=== PATIENT | female | born 1990 | race Caucasian/White ===

== ENCOUNTER 2019-10-18 09:11 | Emergency (ER) | payer BC, SELFPAY ==
[2019-10-18 09:14] VITALS: BP 123/67; PULSE 95; RESP 18; TEMP 36.6; O2SAT 99
--- NOTE | 2019-10-18 11:51 | ED.SKABFB ---
HPI - Skin/Abscess/Foreign Bdy General Chief complaint: Skin/Abscess/Foreign Body <Kuldeep Faye PA-C - Last Filed: 10/18/19 13:54> Stated complaint: bartholin cyst <Kuldeep Faye PA-C - Last Filed: 10/18/19 13:54> Time Seen by Provider: 10/18/19 10:15 <GORDON Navas Last Filed: 10/18/19 13:54> Source: patient <GORDON Navas Last Filed: 10/18/19 13:54> Mode of arrival: ambulatory <GORDON Navas Last Filed: 10/18/19 13:54> Limitations: no limitations <Kuldeep Faye PA-C - Last Filed: 10/18/19 13:54> History of Present Illness HPI narrative: Patient with history of recurrent Bartholin's cyst presents with a Bartholin cyst to the right side has been present for 3 days. Patient states that she has had approximately 15 Bartholin cyst over the past few years and is managed by Dr. Rico Vaughn [employer]. She reports that she had a marsupialization in 2019 but still had Bartholin's cyst reappear so she has been using NuvaRing successfully avoided having Bartholin cysts since. She reports that she took out her NuvaRing a few days early and thinks that this may be the cause of her Bartholin cyst. Patient states that she was told to see endocrinology for further evaluation since the marsupialization did not resolve Bartholin's cyst issues completely. Patient reports pain to the area but denies fever, chills, nausea, vomiting, diarrhea or any other symptoms. Patient states that she has had positive results with clindamycin in the past. Patient denies any other symptoms or concerns. <Kuldeep Faye PA-C - Last Filed: 10/18/19 13:54> Related Data Home medications: Home Medications Medication Instructions Recorded Confirmed buspirone 10 mg PO DAILY 10/18/19 <GORDON Navas Last Filed: 10/18/19 13:54> Allergies/Adverse reactions: Allergies Allergy/AdvReac Type Severity Reaction Status Date / Time bee venom protein (honey bee) Allergy Anaphylactic Verified 10/18/19 09:18 [bees] Shock cefaclor [From Ceclor] Allergy Unknown Verified 10/18/19 09:18 Sulfa (Sulfonamide Allergy Unknown Verified 10/18/19 09:18 Antibiotics) wasp Allergy Anaphylactic Uncoded 10/18/19 09:18 Shock <Kuldeep Faye PA-C - Last Filed: 10/18/19 13:54> Review of Systems Review of Systems: Narrative: CONSTITUTIONAL: Denies fever, chills, or sweats. EYES: Denies visual changes, redness, or discharge. ENT: Denies rhinorrhea, congestion, sore throat, or otalgia. CARDIOVASCULAR: Denies chest pain, palpitations, or edema. RESPIRATORY: Denies cough or dyspnea. GASTROINTESTINAL: Denies abdominal pain, nausea, vomiting, or diarrhea. GENITOURINARY: Reports vaginal pain and cyst denies dysuria or hematuria. SKIN: Denies rash or itching. MUSCULOSKELETAL: Denies back pain, joint pain, or myalgia. NEUROLOGIC: Denies headache, numbness, dizziness, or weakness. PSYCHIATRIC: Denies anxiety or depression. <Kuldeep Faye PA-C - Last Filed: 10/18/19 13:54> [facility] Past Medical History Medical History: Medical History (Updated 10/18/19 @ 11:58 by Kuldeep Faye PA-C) Bartholin cyst <Kuldeep Faye PA-C - Last Filed: 10/18/19 13:54> Social History Social History: Social History Gender identity (if verbalized by the patient): Female <Kuldeep Faye PA-C - Last Filed: 10/18/19 13:54> Exam Narrative: Exam Narrative: GENERAL: Well-appearing, well-nourished, nontoxic in appearance. HEAD: Normocephalic, atraumatic. EYES: PERRLA and EOMI. ENT: Nares clear, no rhinorrhea or epistaxis. Mucous membranes moist. Oropharynx without tonsillar hypertrophy exudate or other lesions. Bilateral TMs pearly jade nonbulging NECK: Supple. No adenopathy or masses. No carotid bruits or JVD CHEST: Clear to auscultation. No respiratory distress. No wheezes rales or rhonchi HEART: Regular rate and rhythm. ABDOMEN: Soft, nontender, nondistended, normal active franc
[2019-10-18 13:30] VITALS: BP 119/80; PULSE 90; RESP 12; O2SAT 100
== END 2019-10-18 14:10 | disposition home or self-care (01) ==
PROVIDERS: Emergency Provider Emergency Medicine; PCP Emergency Medicine
DX: N75.0 Cyst of Bartholin's gland (principal)
CPT/HCPCS: 56420; 87070; 87077; 87205; 99283; A9270

== ENCOUNTER 2019-11-25 06:52 | Outpatient (NON) | payer BC, SELFPAY ==
[2019-11-26 14:02] LABS: SARS-CoV-2 RNA PCR Negative
== END 2019-11-25 06:53 ==
PROVIDERS: PCP Emergency Medicine; Visit Provider Emergency Medicine
DX: Z20.828 Contact with and (suspected) exposure to other viral communicable diseases (principal); J02.9 Acute pharyngitis, unspecified
CPT/HCPCS: 87635; C9803; U0003

== ENCOUNTER 2021-10-06 13:26 | Outpatient (CLI) | payer BC, SELFPAY ==
--- NOTE | 2021-10-06 01:00 | ECHO_ITS ---
Patient Info Name: Jackie Engel Age: 31 years : 1990 Gender: Female Ht: 64 in Wt: 190 lbs BSA: 2.01 m2 HR: 69 bpm BP: 113 / 75 mmHg Heart Rhythm: Sinus Rhythm Technical Quality: Fair Exam Date: 10/06/2021 1:36 PM Exam Location: [facility] Patient Status: Outpatient Admit Date: 10/06/2021 Staff Ordering Physician: SophieRamon MD De Icer Element Winder: Belinda Villagran RDCS Attending Provider: Navjot*, Ramon Mak MD Referring Physician: Doris SRIVASTAVA; Exam Type: CA echo doppler color flow Study Info Indications R00.0 - Tachycardia, unspecified Complete two-dimensional, color flow and Doppler transthoracic echocardiogram is performed. Summary 1. Complete two-dimensional, color flow and Doppler transthoracic echocardiogram is performed. 2. Left ventricular chamber dimension is normal. 3. Left ventricular systolic function is normal, estimated at 60-65%. 4. The left ventricular diastolic function is normal. 5. E/e' 7 is not elevated. 6. There is trace mitral valve regurgitation. 7. There is trace tricuspid valve regurgitation. 8. No pulmonary hypertension, estimated pulmonary arterial systolic pressure is 26 mmHg. Left Ventricle E/e' 7 is not elevated. Left ventricular chamber dimension is normal. Left ventricular systolic function is normal, estimated at 60-65%. The left ventricular diastolic function is normal. Right Ventricle Right ventricular systolic function is normal and with normal TAPSE 1.9 cm. Right ventricular chamber dimension is normal. Left Atria Left atrial chamber dimension is normal. Right Atria Right atrial chamber dimension is normal. Aortic Valve The aortic valve is trileaflet. There is no aortic valve stenosis. There is no aortic valve regurgitation. Pulmonic Valve There is no pulmonic regurgitation. Mitral Valve There is no mitral valve stenosis. There is trace mitral valve regurgitation. Tricuspid Valve There is trace tricuspid valve regurgitation. No pulmonary hypertension, estimated pulmonary arterial systolic pressure is 26 mmHg. Pericardium/Pleural There is no pericardial effusion. Inferior Vena Cava Normal inferior vena cava with >50% collapse upon inspiration consistent with normal right atrial pressure, 5 mmHg. Aorta The aortic root size at the sinus of Valsalva is normal. Left Ventricular Outflow Tract Name Value Normal LVOT 2D LVOT Diameter 2.0 cm LVOT Doppler LVOT Peak Velocity 96 cm/s LVOT Peak Gradient 4 mmHg LVOT Mean Gradient 2 mmHg LVOT VTI 20 cm LVOT VTI/AV VTI Ratio 0.7 LVOT Stroke Volume 66 ml Pulmonic Valve Name Value Normal RVOT Doppler RVOT Peak Gradient 1 mmHg
== END 2021-10-06 13:27 | disposition home or self-care (01) ==
LOC: CHSIMG 13:28
PROVIDERS: Visit Provider Internal Medicine Cardiovascular Disease
DX: R00.0 Tachycardia, unspecified (principal)
CPT/HCPCS: 93306

== ENCOUNTER 2023-11-17 19:40 | Emergency (ER) | payer BC, SELFPAY ==
--- NOTE | 2023-11-17 19:45 | ED.WOUNDLAC ---
HPI - Wound/Laceration General Chief Complaint: Wound/Laceration Stated Complaint: Cut Finger Time Seen by Provider: 11/17/23 19:50 Source: patient Mode of arrival: ambulatory Limitations: no limitations History of Present Illness HPI narrative: Jackie is a 33-year-old female patient presenting to the clinic today with complaints of a laceration to the right index finger. She reports she cut this on a metal tin when she was reaching into her purse prior to arrival. Bleeding is controlled. Tetanus is up-to-date. Related Data Home Medications Medication Instructions Recorded Confirmed sertraline 100 mg tablet (Zoloft) 100 mg PO DAILY 12/22/18 11/17/23 buspirone 10 mg tablet 10 mg PO DAILY 10/18/19 11/17/23 aripiprazole 2 mg tablet 2 mg PO DAILY 11/17/23 11/17/23 atomoxetine 40 mg capsule 40 mg PO DAILY 11/17/23 11/17/23 (Strattera) etonogestrel 0.12 mg-ethinyl 1 vag ring vaginal DAILY 11/17/23 11/17/23 estradiol 0.015 mg/24 hr vaginal ring (EluRyng) Allergies Allergy/AdvReac Type Severity Reaction Status Date / Time cefaclor Allergy Mild Unknown Verified 11/17/23 19:42 Sulfa (Sulfonamide Allergy Unknown Unknown Verified 11/17/23 19:42 Antibiotics) venom-honey bee Allergy Unknown Unknown Verified 11/17/23 19:42 bee venom protein (honey bee) Allergy Anaphylactic Verified 11/17/23 19:42 [bees] Shock wasp Allergy Anaphylactic Uncoded 11/17/23 19:42 Shock Review of Systems Review of Systems: Pertinent positives per HPI. Patient denies any fever, chills, rash, headache, visual changes, dizziness, cough, runny nose, sore throat, shortness of breath, chest pain, palpitations, nausea, vomiting, diarrhea, constipation, abdominal pain, or any urinary issues. [facility] Past Medical History Medical History Bartholin cyst PTSD (post-traumatic stress disorder) Surgical History Surgical History Hx of appendectomy Family History Family History Father Hypertension Family history of mental disorder Mother Hypertension Sibling Patient's sister is in good health Other Diabetes mellitus Social History Social History Smoking status: Former smoker Tobacco type: cigarettes Alcohol intake: current Substance use: current Substance use type: marijuana Gender identity (if verbalized by the patient): Female Comments At the time of my signature, I reviewed and agree with the nursing past medical, surgical, social, and family history. There is no relevant family history pertinent to the patient complaint. Exam Narrative: General: Well-developed, well nourished, in no apparent distress Head: Normocephalic, atraumatic. Cardio: Regular rate and rhythm, s1 and s2 normal, no murmur appreciated. Resp: Clear to auscultation bilaterally, no rhonchi, rales, wheezing or rubs. Integumentary: [place], warm, and dry 1.5 cm laceration to the distal tip of the right index finger without nail involvement Course Course Emergency Course: Portions of this record may have been created with voice recognition software. Level of Care: Express Care Visit Vital Signs Vital signs: Vital Signs Temperature 36.8 C 11/17/23 19:47 Pulse Rate 98 11/17/23 19:47 Respiratory Rate 16 11/17/23 19:47 Blood Pressure 121/79 11/17/23 19:47 Pulse Oximetry 98 11/17/23 19:47 Temperature 36.8 C 11/17/23 19:47 Pulse Rate 98 11/17/23 19:47 Respiratory Rate 16 11/17/23 19:47 Blood Pressure 121/79 11/17/23 19:47 Pulse Oximetry 98 11/17/23 19:47 Vital signs reviewed Procedures Laceration Laceration 1: Date: 11/17/23 Site: hand (finger) Side (If applicable): left Size (cm): 1.5 Description: linear and flap
[2023-11-17 19:47] VITALS: BP 121/79; PULSE 98; RESP 16; TEMP 36.8; O2SAT 98
== END 2023-11-17 20:06 | disposition home or self-care (01) ==
PROVIDERS: Emergency Provider Nurse Practitioner Family
DX: S61.210A Laceration without foreign body of right index finger without damage to nail, initial encounter (principal); W45.8XXA Other foreign body or object entering through skin, initial encounter; Z87.891 Personal history of nicotine dependence
CPT/HCPCS: 12001; 99212; G0463